=== PATIENT | male | born 1975 ===

== ENCOUNTER 2020-04-25 20:24 | Outpatient (REF) | payer OTHER, SELFPAY ==
[2020-04-25 21:16] LABS: Calculated LDL 189 mg/dL (<100); Cholesterol 287 mg/dL (<200); Glucose 98 mg/dL (74-106); HDL Cholesterol 45 mg/dL (40-60); Triglyceride 268 mg/dL (<150)
== END 2020-04-25 20:44 ==
LOC: NCHCN 20:24
PROVIDERS: Visit Provider Nurse Practitioner Family
DX: Z13.220 Encounter for screening for lipoid disorders (principal); Z13.1 Encounter for screening for diabetes mellitus
CPT/HCPCS: 80061; 82947

== ENCOUNTER 2021-06-20 19:23 | Outpatient (REF) | payer OTHER, SELFPAY ==
[2021-06-20 20:12] LABS: ALT 27 U/L (16-63); AST 16 U/L (15-37); Albumin 4.3 g/dL (3.4-5.0); Alkaline Phosphatase 58 U/L (46-116); Anion Gap 9.7 mmol/L (3-11); BUN 16 mg/dL (7-18); Bilirubin, Total 0.4 mg/dL (0.2-1.0); CO2 25.3 mmol/L (21.0-32.0); CREATININE 0.8 mg/dL (0.70-1.30); Calcium 9.8 mg/dL (8.5-10.1); Calculated LDL 165 mg/dL (<100); Chloride 103 mmol/L (98-107); Cholesterol 237 mg/dL (<200); Glucose 95 mg/dL (74-106); HDL Cholesterol 49 mg/dL (40-60); Potassium 4.1 mmol/L (3.5-5.1); Sodium 138 mmol/L (136-145); Total Protein 7.7 g/dL (6.4-8.2); Triglyceride 118 mg/dL (<150)
== END 2021-06-20 19:24 | disposition home or self-care (01) ==
LOC: NCHCN 19:23
PROVIDERS: Visit Provider Nurse Practitioner Family
DX: E78.5 Hyperlipidemia, unspecified (principal)
CPT/HCPCS: 80053; 80061

== ENCOUNTER 2022-07-10 15:22 | Outpatient (REF) | payer OTHER, SELFPAY ==
[2022-07-10 21:35] LABS: Calculated LDL 160 mg/dL (<100); Cholesterol 245 mg/dL (<200); Glucose 95 mg/dL (74-106); HDL Cholesterol 57 mg/dL (40-60); Triglyceride 143 mg/dL (<150)
== END 2022-07-10 15:23 | disposition home or self-care (01) ==
LOC: NCHCN 15:22
PROVIDERS: Visit Provider Nurse Practitioner Family
DX: E78.5 Hyperlipidemia, unspecified (principal)
CPT/HCPCS: 80061; 82947

== ENCOUNTER 2024-06-14 18:24 | Outpatient (REF) | payer OTHER, SELFPAY ==
[2024-06-14 19:27] LABS: Calculated LDL 153 mg/dL (<100); Cholesterol 230 mg/dL (<200); Glucose 128 mg/dL (74-106); HDL Cholesterol 54 mg/dL (40-60); Triglyceride 116 mg/dL (<150)
== END 2024-06-14 18:25 | disposition home or self-care (01) ==
LOC: NCHCN 18:24
PROVIDERS: Visit Provider Nurse Practitioner Family
DX: E78.5 Hyperlipidemia, unspecified (principal); Z13.1 Encounter for screening for diabetes mellitus
CPT/HCPCS: 80061; 82947